=== PATIENT | male | born 1985 | race Hispanic/Latino ===

== ENCOUNTER 2017-11-23 08:50 | Emergency (ER) | payer BC, OTHER | END 2017-11-23 09:45 | disposition home or self-care (01) | LOC: ERS 08:50 | DX: J11.1 Influenza due to unidentified influenza virus with other respiratory manifestations (principal) | CPT/HCPCS: 87081; 87430; 99283 ==

== ENCOUNTER 2020-12-26 23:53 | Emergency (ER) | payer BC, OTHER ==
[2020-12-27] MEDS ORDERED: Ketorolac Tromethamine 30 MG/ML VIAL ONE (00:13)
[2020-12-27] MEDS ORDERED: Ondansetron PF 4 MG/2 ML Vial ONE ×2 (00:13→01:11)
[2020-12-27 00:17] LABS: #Basophils 0.1 thou/uL (0.0-0.2); #Eosinphils 0.1 thou/uL (0.0-0.7); #Lymphocytes 3.2 thou/uL (1.20-3.40); #Monocytes 1.1 thou/uL (0.11-0.59); #Neutrophils 4.3 thou/uL (1.40-6.50); %Basophils 0.8 % (0.0-1.0); %Eosinophils 0.8 % (0.0-10.0); %Neutrophils 49.4 % (42.0-75.0); Hemoglobin 15.4 g/dL (14.0-18.0); Mean Corpuscular HGB CONC 36.3 g/dL (32.0-36.0); Mean Corpuscular Hemoglobin 33.6 pg (27.0-31.0); Mean Corpuscular Volume 92.5 fL (78.0-98.0); Mean Platelet Volume 7.1 fL (7.4-10.4); Platelet Count 284 thou/uL (130-400); RBC Distribution Width 12.4 % (11.5-14.5); Red Blood Cell (RBC) Count 4.57 mill/uL (4.70-6.10); White Blood Cell (WBC) Count 8.7 thou/uL (4.8-10.8)
[2020-12-27 00:38] LABS: ALT (SGPT) 31 U/L (8-55); AST (SGOT) 25 U/L (5-34); Albumin 4.3 g/dL (3.5-5.0); Alkaline Phosphatase 77 U/L (40-110); Anion Gap 17 mmol/L (10-20); BUN (Urea Nitrogen) 19 mg/dL (8.9-20.6); Bilirubin, Total 0.8 mg/dL (0.2-1.2); Calc. Creatinine Clearance 0 mL/min (70-130); Calcium 8.8 mg/dL (7.8-10.44); Carbon Dioxide 21 mmol/L (22-29); Chloride 104 mmol/L (98-107); Globulin 3.3 g/dL (2.4-3.5); Glucose 123 mg/dL (70-105); Potassium 3.1 mmol/L (3.5-5.1); Protein, Total 7.6 g/dL (6.0-8.3); Sodium 139 mmol/L (136-145)
[2020-12-27] MEDS ORDERED: Morphine 4 MG/ML VIAL ONE (01:08)
[2020-12-27] MEDS ORDERED: HYDROcodone/Acetaminophen 5/325 mg Tablet ONE (03:11)
--- NOTE | 2020-12-27 07:25 | CT ---
PRELIMINARY REPORT/[facility]/EMERGENCY AFTER HOURS PROCEDURE EXAM: CT Abdomen and Pelvis Without Intravenous Contrast CLINICAL HISTORY: 35-year-old male with no significant past medical history presents with acute onset left flank, low b ack, and left lower quadrant pain approximately 1 hour ago. Pain is sharp and constant. TECHNIQUE: Axial computed tomography images of the abdomen and pelvis without intravenous contrast. CONTRAST: None. COMPARISON: None provided. FINDINGS: LUNG BASES: No basilar airspace consolidation or pleural effusion. LIVER: Unremarkable. GALLBLADDER AND BILE DUCTS: Unremarkable. No calcified stone. No ductal dilation. PANCREAS: Unremarkable. SPLEEN: Unremarkable. ADRENAL GLANDS: Unremarkable. KIDNEYS, URETERS, AND BLADDER: There is about a 3 mm stone in the left UVJ, causing mild left-sided hydronephrosis and hydroureter. STOMACH AND BOWEL: No obstruction. No wall thickening. No CT evidence of colitis or acute diverticulitis. APPENDIX: No CT evidence for appendicitis. PERITONEUM: No free fluid. No free air. LYMPH NODES: No lymphadenopathy. REPRODUCTIVE: Unremarkable as visualized. VASCULATURE: No aortic aneurysm. ABDOMINAL WALL AND SOFT TISSUES: There is a small bilateral inguinal hernia containing omental fat. BONES: No fracture or suspicious osseous abnormality. IMPRESSION: 1. There is about a 3 mm stone in the left UVJ, causing mild left-sided hydronephrosis and hydrourete r. 2. There is a small bilateral inguinal hernia containing omental fat. ELECTRONICALLY SIGNED BY: Zayda Majano MD Dec 27, 2020 12:38:28 AM SENIOR TELECOMMUNICATIONS TECHNICIAN This report is intended for review by the ordering physician only, in accordance of law. If you recei ve this report in error, please call [facility] at [phone]. FINAL REPORT Exam: Abdomen CT without contrast Pelvic CT without contrast HISTORY: Left flank pain. Low back pain. COMPARISON: None FINDINGS: Abdomen CT: Lung bases:Small left-sided diaphragmatic hernia containing mesenteric fat Heart size: Normal Aorta: Unremarkable Solid organs: Limited evaluation by the lack of IV contrast. Grossly no solid organ abnormality Lymph nodes: No gastrohepatic, retrocrural or periportal lymphadenopathy Gallbladder: No CT evidence of cholecystitis Mesentery: No mass, lymphadenopathy, free air or free fluid Kidneys: No evidence of right-sided obstructive uropathy. Moderate left-sided obstructive uropathy se condary to a calculus in the distal left ureter measuring approximately 1-2 mm. Alimentary canal: Limited evaluation by the lack of oral contrast. No evidence of bowel obstruction. Normal caliber appendix. CT PELVIS: No mass, adenopathy, free air or free fluid. Bilateral inguinal hernias containing fat are identifie d. Urinary bladder: Unremarkable. Osseous structures: No lytic or blastic lesions IMPRESSION: 1. This report is in agreement with initial report by [facility]. 2. Left-sided obstructive uropathy secondary to a solitary calculus in the distal left ureter measuri ng approximately 0.2 cm Transcribed Date/Time: 12/27/2020 7:36 AM
[2020-12-27 08:34] LABS: Bilirubin Negative (Negative); Blood, Urine 3+ (Negative); Clarity Clear (Clear); Glucose, Urine (Dipstick) Normal (Negative); Ketone, Urine 60 mg/dL (Negative); Leukocyte Negative Leu/uL (Negative); Nitrite Negative (Negative); Protein, Urine (Dipstick) Negative (Neg-Trace); Specific Gravity, Urine 1.026 (1.002-1.036); Urobilinogen Normal mg/dL (Less than 2); pH, Urine 5.5 (5.0-9.0)
== END 2020-12-27 03:23 | disposition home or self-care (01) ==
LOC: ERS 23:53
DX: N13.2 Hydronephrosis with renal and ureteral calculous obstruction (principal)
CPT/HCPCS: 36415; 74176; 80053; 81003; 81015; 85025; 96374; 96375; 96376; J1885; J2270; J2405

== ENCOUNTER 2023-02-24 19:00 | Outpatient (CLI) | payer BC | END 2023-02-24 19:01 | disposition home or self-care (01) | LOC: SLEEPLAB 19:00 | PROVIDERS: ATTEND Nurse Practitioner Family | DX: G47.33 Obstructive sleep apnea (adult) (pediatric) (principal) | CPT/HCPCS: 95800 ==